=== PATIENT | male | born 1955 | race American Indian/Alaskan Native ===

== ENCOUNTER 2018-09-13 13:42 | Emergency (ER) | payer OTHER, MEDICARE ==
[2018-09-13 15:38] VITALS: BP 142/87
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
--- NOTE | 2018-09-13 17:46 | XRay Report ---
PROCEDURE: Lumbar spine. TECHNIQUE: 3 views. HISTORY: Low back pain. COMPARISONS: None. FINDINGS: The lumbar vertebrae have normal height and alignment. There are no fractures. There is no spondyloli sthesis. The disc spaces appear adequate. There are small vertebral body osteophytes. The sacrum and sacroiliac joints appear normal. IMPRESSION: No significant abnormality. This document is electronically signed by Peter Garzon MD., September 13 2018 05:43:43 PM ET
[2018-09-13] MEDS ORDERED: TORADOL IM ONE (17:53)
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
== END 2018-09-13 18:28 | disposition home or self-care (01) ==
LOC: ED 13:42
DX: S39.012A Strain of muscle, fascia and tendon of lower back, initial encounter (principal); M54.16 Radiculopathy, lumbar region; I10 Essential (primary) hypertension; E78.00 Pure hypercholesterolemia, unspecified; M79.604 Pain in right leg; V49.49XA Driver injured in collision with other motor vehicles in traffic accident, initial encounter; X58.XXXA Exposure to other specified factors, initial encounter; Y93.89 Activity, other specified; Y92.488 Other paved roadways as the place of occurrence of the external cause; Y99.8 Other external cause status
CPT/HCPCS: 72100; 96372; 99283; J1885